=== PATIENT | female | born 1940 | race Caucasian/White ===

== ENCOUNTER 2016-07-02 10:42 | Outpatient (CLI) | payer MEDICARE, OTHER ==
[2015-01-01 20:09] VITALS: BP 138/78
[2016-07-02 11:04] LABS: BASOPHILS % 0.5 (0.0-1.5); EOSINOPHILS % 4.3 % (0.0-6.8); MEAN CORPUSCULAR HEMOGLOBIN 32.1 pg (28.0-34.0); MEAN CORPUSCULAR VOLUME 99.4 fl (80.0-100.0); MONOCYTES % 4.3 % (0.0-11.0); NEUTROPHILS # 6.1 # k/uL (1.4-7.7)
[2016-07-02 11:22] LABS: eGFR (African) 33; eGFR (Non-African) 28
[2016-07-02 17:52] LABS: SERUM IRON 67 ug/dL (37-145)
== END 2016-07-02 10:43 ==
LOC: LAB 10:42
PROVIDERS: ATTEND Internal Medicine Hematology & Oncology
DX: B99.9 Unspecified infectious disease (principal); J15.9 Unspecified bacterial pneumonia; D50.0 Iron deficiency anemia secondary to blood loss (chronic); R79.89 Other specified abnormal findings of blood chemistry; M25.50 Pain in unspecified joint
CPT/HCPCS: 36415; 80053; 82607; 83540; 83550; 83880; 85025

== ENCOUNTER 2016-08-08 13:24 | Outpatient (CLI) | payer MEDICARE, OTHER ==
[2015-01-01 20:09] VITALS: BP 138/78
== END 2016-08-08 13:25 ==
LOC: POD 13:24
PROVIDERS: ATTEND Podiatrist
DX: B35.1 Tinea unguium (principal); M79.674 Pain in right toe(s); M79.675 Pain in left toe(s)
CPT/HCPCS: 11721; G0463

== ENCOUNTER 2016-09-03 14:14 | Outpatient (CLI) | payer MEDICARE, OTHER ==
[2015-01-01 20:09] VITALS: BP 138/78
[2016-09-03 14:40] LABS: BASOPHILS % 0.7 (0.0-1.5); EOSINOPHILS % 3.7 % (0.0-6.8); MEAN CORPUSCULAR HEMOGLOBIN 33.8 pg (28.0-34.0); MEAN CORPUSCULAR VOLUME 98.7 fl (80.0-100.0); MONOCYTES % 4.4 % (0.0-11.0); NEUTROPHILS # 5.3 # k/uL (1.4-7.7)
[2016-09-04 02:11] LABS: SERUM IRON 74 ug/dL (37-145); TOTAL PROTEIN 6.3 g/dL (6.0-8.5)
== END 2016-09-03 14:15 ==
LOC: LAB 14:14
PROVIDERS: ATTEND Internal Medicine Hematology & Oncology
DX: D50.0 Iron deficiency anemia secondary to blood loss (chronic) (principal); K62.5 Hemorrhage of anus and rectum; R10.84 Generalized abdominal pain; K21.0 Gastro-esophageal reflux disease with esophagitis; I50.9 Heart failure, unspecified
CPT/HCPCS: 36415; 80053; 82607; 83540; 83550; 83880; 84550; 85025

== ENCOUNTER 2016-09-26 14:13 | Outpatient (CLI) | payer MEDICARE, OTHER ==
[2015-01-01 20:09] VITALS: BP 138/78
== END 2016-09-26 14:15 ==
LOC: POD 14:13
PROVIDERS: ATTEND Podiatrist
DX: E11.42 Type 2 diabetes mellitus with diabetic polyneuropathy (principal); M20.41 Other hammer toe(s) (acquired), right foot; M20.42 Other hammer toe(s) (acquired), left foot
CPT/HCPCS: G0463

== ENCOUNTER 2016-11-18 13:05 | Outpatient (CLI) | payer MEDICARE, OTHER ==
[2015-01-01 20:09] VITALS: BP 138/78
== END 2016-11-18 13:06 ==
LOC: POD 13:05
PROVIDERS: ATTEND Podiatrist
DX: B35.1 Tinea unguium (principal); M79.674 Pain in right toe(s); M79.675 Pain in left toe(s)
CPT/HCPCS: 11721; G0463

== ENCOUNTER 2016-12-02 14:14 | Outpatient (CLI) | payer MEDICARE, OTHER ==
[2015-01-01 20:09] VITALS: BP 138/78
[2016-12-02 14:56] LABS: BASOPHILS % 0.8 (0.0-1.5); MEAN CORPUSCULAR HEMOGLOBIN 33.5 pg (28.0-34.0); MEAN CORPUSCULAR VOLUME 97.2 fl (80.0-100.0); MONOCYTES % 6.3 % (0.0-11.0); NEUTROPHILS # 4.6 # k/uL (1.4-7.7)
[2016-12-02 15:17] LABS: eGFR (African) 35; eGFR (Non-African) 29
[2016-12-03 04:11] LABS: SERUM IRON 70 ug/dL (37-145); VITAMIN D, 25-HYDROXY 51 ng/mL (30-100)
== END 2016-12-02 14:15 ==
LOC: LAB 14:14
PROVIDERS: ATTEND Internal Medicine Hematology & Oncology
DX: D50.0 Iron deficiency anemia secondary to blood loss (chronic) (principal); M25.50 Pain in unspecified joint; R94.5 Abnormal results of liver function studies; I50.9 Heart failure, unspecified; E10.65 Type 1 diabetes mellitus with hyperglycemia; R79.89 Other specified abnormal findings of blood chemistry
CPT/HCPCS: 36415; 80053; 82306; 83540; 83550; 83880; 84550; 85025

== ENCOUNTER 2017-03-27 14:59 | Outpatient (CLI) | payer MEDICARE, OTHER ==
[2015-01-01 20:09] VITALS: BP 138/78
== END 2017-03-27 15:00 ==
LOC: POD 14:59
PROVIDERS: ATTEND Podiatrist
DX: B35.1 Tinea unguium (principal); M79.674 Pain in right toe(s); M79.675 Pain in left toe(s)
CPT/HCPCS: 11721; G0463

== ENCOUNTER 2017-03-30 09:01 | Outpatient (CLI) | payer OTHER ==
[2015-01-01 20:09] VITALS: BP 138/78
[2017-03-30 09:59] LABS: EOSINOPHILS % 4.1 % (0.0-6.8); MEAN CORPUSCULAR HEMOGLOBIN 33.8 pg (28.0-34.0); MEAN CORPUSCULAR VOLUME 102.4 fl (80.0-100.0); MONOCYTES % 4.9 % (0.0-11.0); NEUTROPHILS # 4.7 # k/uL (1.4-7.7)
[2017-03-30 10:55] LABS: eGFR (African) 38; eGFR (Non-African) 31
[2017-03-30 17:31] LABS: SERUM IRON 59 ug/dL (37-145)
== END 2017-03-30 09:03 ==
LOC: LAB 09:01
PROVIDERS: ATTEND Internal Medicine Hematology & Oncology
DX: D50.0 Iron deficiency anemia secondary to blood loss (chronic) (principal); K62.5 Hemorrhage of anus and rectum; E11.65 Type 2 diabetes mellitus with hyperglycemia; M54.9 Dorsalgia, unspecified; K21.0 Gastro-esophageal reflux disease with esophagitis
CPT/HCPCS: 36415; 80053; 83540; 83550; 85025

== ENCOUNTER 2017-06-26 15:02 | Outpatient (CLI) | payer OTHER ==
[2015-01-01 20:09] VITALS: BP 138/78
== END 2017-06-26 15:03 ==
LOC: POD 15:02
PROVIDERS: ATTEND Podiatrist
DX: B35.1 Tinea unguium (principal); M79.674 Pain in right toe(s); M79.675 Pain in left toe(s); E11.42 Type 2 diabetes mellitus with diabetic polyneuropathy; M20.41 Other hammer toe(s) (acquired), right foot; M20.42 Other hammer toe(s) (acquired), left foot
CPT/HCPCS: G0463

== ENCOUNTER 2017-09-19 14:44 | Emergency (ER) | payer OTHER ==
--- NOTE | 2017-09-19 14:57 | ED Physician Documentation ---
Shoulder Injury/Pain - HISTORIAN Historian: patient - HPI Stated Complaint: right shoulder pain x 1 day Chief Complaint: Shoulder Injury/ Pain Onset: today Where: home Severity: moderate Pain: persistent Context: denies: fall, direct blow, dislocated raising arm Associated Symptoms: unable to move shoulder. denies: weakness Further Comments: yes - ROS CONST: no problems CVS/RESP: none GI/: denies: nausea, vomiting, abdominal pain MS/SKIN/LYMPH: denies: neck pain, back pain, rash NEURO: denies: headache, anxiety, depression - PAST HX Past History: other (demtentia ) Immunizations: UTD Allergies/Adverse Reactions: Allergies Allergy/AdvReac Type Severity Reaction Status Date / Time cephalexin [Cephalexin] Allergy Verified 09/19/17 15:11 donepezil [Donepezil] Allergy Verified 09/19/17 15:11 donepezil HCl [From Aricept] Allergy Verified 09/19/17 15:11 ethylenediamine Allergy Verified 09/19/17 15:11 formaldehyde Allergy Verified 09/19/17 15:11 meclizine Allergy Verified 09/19/17 15:11 methenamine [Methenamine] Allergy Verified 09/19/17 15:11 neomycin [Neomycin] Allergy Verified 09/19/17 15:11 quaternium [Quaternium] Allergy Verified 09/19/17 15:11 thimerosal Allergy Verified 09/19/17 15:11 tramadol Allergy Verified 09/19/17 15:11 Epoxy Allergy Mild Uncoded 09/19/17 15:11 Home Medications: Ambulatory Orders Medication Instructions Recorded Aspirin [Deena] 81 mg PO DAILY 01/01/15 B12/Levomefolate Calcium/B-6 1 each PO DAILY 01/01/15 [Foltx Tablet] Calcium Carbonate/Vitamin D3 1 each PO BID 01/01/15 [Calcium 600 + Vit D3 Caplet] Citalopram Hydrobromide [Celexa] 20 mg PO 8HS 01/01/15 Cranberry [Cranberry] 1 tab PO BID 01/01/15 Dicyclomine HCl [Bentyl] 10 mg PO BID 01/01/15 Furosemide [Furosemide] 40 mg PO 0700 01/01/15 Glimepiride [Glimepiride] 4 mg PO [id number] 01/01/15 Glucosa Simons 2Kcl/Chondroitin Simons 1 each PO BID 01/01/15 [Glucosamine-Chondroitin Cap] Memantine HCl [Namenda] 10 mg PO DAILY 01/01/15 Metformin HCl [Glucophage] 500 mg PO BID 01/01/15 Tamsulosin HCl [Tamsulosin HCl] 0.4 mg PO DAILY 01/01/15 predniSONE [Deltasone] 10 mg PO QD 01/01/15 traMADol HCL [Ultram] 50 mg PO Q6H 01/01/15 - SOCIAL HX Smoking History: non-smoker Alcohol Use: none Drug Use: none - FAMILY HX Family History: none - VITAL SIGNS Vital Signs: Vital Signs Temp Pulse Resp BP Pulse Ox 98.4 F 81 20 118/42 98 09/19/17 16:37 09/19/17 16:37 09/19/17 16:37 09/19/17 16:37 09/19/17 16:37 - REVIEWED ASSESSMENT Nursing Assessment Reviewed: Yes Vitals Reviewed: Yes Progress - Progress Progress: 1600: discussed results. is concerned with how he will get her in the house. She is shivering and he is concerned about this situation although the pt is cold per her statement. She reports her pain is "better" no number is able to be achieved. DG ED Results Lab/Radiology - Radiology Radiology Impressions: Right humerus 2 views Clinical history pain Technique AP and lateral humerus Findings: There is no fracture or lytic change. Bone density is normal Impression negative Electronically signed on Sep 19, 2017 3:46:07 PM CDT by: Leif Person Right shoulder 2 views Clinical history shoulder pain Technique internal and external rotation Findings: Arthritic changes are present the ac joint and glenohumeral joint. There is no fracture dislocation. No lytic change is seen. Impression: Shoulder degenerative arthritis with no acute pathology Electronically signed on Sep 19, 2017 3:45:23 PM CDT by: Leif Person - Orders Orders: ED Orders Category Date Time Status HUMERUS 2 VIEWS OR MORE [RAD] Stat Exams 09/19/17 Completed SHOULDER 2 VIEWS OR MORE [RAD] Stat Exams 09/19/17 Completed Ketorolac Tromethamine [Toradol] Med 09/19/17 15:41 Discontinued 60 mg .ROUTE .STK-MED ONE Ketorolac Tromethamine [Toradol] Med 09/19/17 15:40 Discontinued 60 mg IM NOW ONE Orphenadrine Citrate [Norflex] Med 09/19/17 16:12 Discontinued 60 mg IM NOW ONE EKG WITH COMPARISON Stat Ther 09/19/17 Ordered Shoulder Injury Physical Exam - Physical Exam General Appearance: alert, mild distress Shoulder: no dislocation, soft-tissue tenderness, bony tenderness, limited ROM ( she will not try to move the shoulder or arm ). No: swelling, deformity, clavicular deformity Upper Extremity: soft-tissue tenderness. No: swelling Neuro: sensation nml Vascular: no vascular compromise, sensation nml. No: abnml color, abnml warmth , abnml cap refill Skin: warm/dry, normal color Head/ENT: nml inspection Respiratory: chest non-tender, breath sounds nml, heart sounds nml CVS: reg rate & rhythm, heart sounds normal, equal pulses, no murmur Abdomen: soft, normal bowel sounds Discharge Clincal Impression: Right shoulder pain Qualifiers: Chronicity: acute Qualified Code(s): M25.511 - Pain in right shoulder Referrals: Dirk Vega MD [Primary Care Provider] - 2 Days Additional Instructions: 1. Cyclobenzaprine 10 mg take 1/2 -1 tab every 8 hours as needed for pain 2. Tylenol as directed 3. Medrol Dose Pack as directed 4. Keep area in sling 5. Ice/Heat as tolerated 6. Return to PCP in 2-4 days for follow up 7. Return to ER For any other concerns Condition: Stable Disposition: 01 HOME, SELF-CARE Decision to Admit: NO Date of Decison to Admit: 09/19/17 Decision Time: 16:17
[2017-09-19] MEDS ORDERED: KETOROLAC TROMETHAMINE 60 MG/2 ML VIAL IM ONE (15:40)
[2017-09-19] MEDS ORDERED: KETOROLAC TROMETHAMINE 60 MG/2 ML VIAL ONE (15:41)
[2017-09-19] MEDS ORDERED: ORPHENADRINE CITRATE 60 MG/2ML IM ONE (16:12)
--- NOTE | 2017-09-19 16:28 | Diagnostic Imaging Report ---
CRUZ ROBLES [facility] [address] [facility] [address] [place], [place]. [address] Report Submission Date: Sep 19, 2017 3:46:07 PM CDT Patient Study Name: SHIRIN CLAIRE Date: Sep 19, 2017 3:14:45 PM CDT Modality Type: DX Gender: F Description: UPPER EXTREMITY : 44 Institution: [facility] Physician: CRUZ ROBLES Right humerus 2 views Clinical history pain Technique AP and lateral humerus Findings: There is no fracture or lytic change. Bone density is normal Impression negative Electronically signed on Sep 19, 2017 3:46:07 PM CDT by: Leif AMADOR
--- NOTE | 2017-09-19 16:28 | Diagnostic Imaging Report ---
CRUZ ROBLES [facility] [address] [facility] [address] [place], [place]. [address] Report Submission Date: Sep 19, 2017 3:45:23 PM CDT Patient Study Name: SHIRIN CLAIRE Date: Sep 19, 2017 3:19:15 PM CDT Modality Type: DX Gender: F Description: SHOULDER : 44 Institution: [facility] Physician: CRUZ ROBLES Right shoulder 2 views Clinical history shoulder pain Technique internal and external rotation Findings: Arthritic changes are present the ac joint and glenohumeral joint. There is no fracture dislocation. No lytic change is seen. Impression: Shoulder degenerative arthritis with no acute pathology Electronically signed on Sep 19, 2017 3:45:23 PM CDT by: Leif AMADOR
[2017-09-19 16:39] VITALS: BP 118/42
== END 2017-09-19 16:37 | disposition home or self-care (01) ==
LOC: ED 14:44
DX: M25.511 Pain in right shoulder (principal)
CPT/HCPCS: 73030; 73060; 93005; J1885; J2360; 96372

== ENCOUNTER 2018-03-01 08:25 | Outpatient (CLI) | payer OTHER ==
[2018-03-01 09:28] LABS: eGFR (Non-African) 36
[2018-03-01 09:31] LABS: BASOPHILS % 0.2 (0.0-1.5); EOSINOPHILS % 3.1 % (0.0-6.8); MEAN CORPUSCULAR HEMOGLOBIN 30.3 pg (28.0-34.0); MONOCYTES % 8.4 % (0.0-11.0)
[2018-03-01 21:21] LABS: SERUM IRON 38 ug/dL (37-145)
== END 2018-03-01 08:26 ==
LOC: LAB 08:25
PROVIDERS: ATTEND Pathology Clinical Pathology/Laboratory Medicine
DX: M06.9 Rheumatoid arthritis, unspecified (principal); E11.65 Type 2 diabetes mellitus with hyperglycemia; R79.89 Other specified abnormal findings of blood chemistry; M15.9 Polyosteoarthritis, unspecified; I50.9 Heart failure, unspecified; K21.0 Gastro-esophageal reflux disease with esophagitis
CPT/HCPCS: 36415; 80053; 80061; 83540; 83550; 83880; 84550; 85025

== ENCOUNTER 2018-04-06 15:12 | Outpatient (CLI) | payer MEDICARE, OTHER ==
--- NOTE | 2018-04-06 20:57 | Diagnostic Imaging Report ---
ANN-MARIE MASTERS [facility] [address] [facility] [address] Report Submission Date: Apr 06, 2018 4:30:08 PM [employer] Patient Study Name: SHIRIN CLAIRE Date: Apr 06, 2018 3:25:50 PM [employer] Modality Type: DX Gender: F Description: FOOT 3 VIEWS OR MORE : 44 Institution: [facility] Physician: ANN-MARIE MASTERS Examination: Plain film right foot History: Numb foot x's 1 day, diabetic Findings: 3 views of the right foot demonstrates generalized osteopenia. Diffuse articular degenerative changes. Calcaneal spurs. No displaced cortical lucency. Impression: Osteopenia and advanced articular degenerative changes. Electronically signed on Apr 06, 2018 4:30:08 PM [employer] TE[employer] by: Estevan AMADOR
== END 2018-04-06 15:14 ==
LOC: RAD 15:12
PROVIDERS: ATTEND Podiatrist Foot & Ankle Surgery
DX: M79.671 Pain in right foot (principal)
CPT/HCPCS: 73630

== ENCOUNTER 2018-11-12 08:13 | Outpatient (CLI) | payer MEDICARE, OTHER | END 2018-11-12 08:15 | LOC: LAB 08:13 | PROVIDERS: ATTEND Specialist | DX: D51.9 Vitamin B12 deficiency anemia, unspecified (principal); Z79.899 Other long term (current) drug therapy | CPT/HCPCS: 36415; 84425 ==